=== PATIENT | male | born 1985 | race Caucasian/White ===

== ENCOUNTER 2016-10-27 10:33 | Inpatient (IN) | payer MEDICAID, OTHER ==
[~2016-10-27] VITALS: Ht 177.8 cm; Wt 96.2 kg
[~2016-10-27 10:33] MED LIST: ABIL10TA; ABIL5TAB; ALLE25CA OR; AMBI10TA; AMBI10TA OR; ATIV1TAB2; BENZ5TA PO; CELE20TA; CELE40TA; COGE1INJ PO; INVE156I IM; KLON0.5T OR; LORA2TAB; NICO21DI4 TD; RISP1TAB; RISP1TAB OR; RISP3TAB16 OR; TRIL600T OR; VIST25CA; no home medications; risperdal consta IM
[2016-10-27] MEDS ORDERED: ROPI0.5T PO (11:16)
[2016-10-27] MEDS ORDERED: ADDE5TAB5 PO (11:16)
[2016-10-27] MEDS ORDERED: ATOM60CA PO (11:16)
[2016-10-27] MEDS ORDERED: INVE1.75 IM (11:16)
[2016-10-27 12:18] LABS: MEAN CORPUSCULAR HEMOGLOBIN 30.5 pg (27.0-33.0); MEAN CORPUSCULAR HGB CONC 34.8 g/dl (32.0-36.5); MEAN CORPUSCULAR VOLUME 87.6 fl (80.0-96.0); RED CELL DISTRIBUTION WIDTH 12.5 % (11.5-14.5); WHITE BLOOD COUNT 16.6 K/mm3 (4.0-10.0)
[2016-10-27 12:59] LABS: METHADONE URINE NEGATIVE (NEGATIVE)
[2016-10-27 13:00] LABS: ALBUMIN 4.3 GM/DL (3.2-5.2); ALBUMIN/GLOBULIN RATIO 1.16 (1.00-1.93); ALKALINE PHOSPHATASE 109 U/L (45-117); ALT/SGPT 90 U/L (12-78); ANION GAP 11 MEQ/L (8-16); AST/SGOT 42 U/L (15-37); BILIRUBIN,DIRECT 0.2 MG/DL (0.0-0.2); BILIRUBIN,TOTAL 0.5 MG/DL (0.2-1.0); BLOOD UREA NITROGEN 11 MG/DL (7-18); CALCIUM LEVEL 9.2 MG/DL (8.5-10.1); CARBON DIOXIDE LEVEL 26 MEQ/L (21-32); CHLORIDE LEVEL 100 MEQ/L (98-107); CREATININE FOR GFR 0.79 MG/DL (0.70-1.30); GLOMERULAR FILTRATION RATE > 60.0 (>60); GLUCOSE, FASTING 95 MG/DL (70-105); POTASSIUM SERUM 3.8 MEQ/L (3.5-5.1); SODIUM LEVEL 137 MEQ/L (136-145)
[2016-10-27] MEDS ORDERED: MOM 30ML SUSPENSION UDC PO PRN (20:45)
[2016-10-27] MEDS ORDERED: MAALOX 30 ML SUSP *UDC PO PRN (20:45)
[2016-10-27] MEDS ORDERED: LORazepam 1 MG TAB PO PRN (20:45)
[2016-10-27] MEDS ORDERED: ACETAMINOPHEN TAB 650MG DOSE (2X325MG) PO PRN (20:45)
[2016-10-27] MEDS: DIVALPROEX 250 MG TAB PO SCH (21:00)
[2016-10-27] MEDS ORDERED: PALIPERIDONE 3 MG ER TAB (INVEGA) PO SCH (21:00)
[2016-10-27] MEDS: rOPINIRole 0.25 MG TAB(REQUIP) PO SCH (21:15)
[2016-10-28 00:57] VITALS: BP 147/94
[2016-10-28 06:42] VITALS: BP 146/93
[2016-10-28] MEDS ORDERED: STRATTERA 60 MG PO SCH (09:00)
[2016-10-28] MEDS ORDERED: ATOMOXETINE HCL 40 MG CAP (STRATTERA) PO SCH (09:00)
[2016-10-28] MEDS: DIVALPROEX 250 MG TAB PO SCH ×2 (09:54→21:06)
[2016-10-28] MEDS: NICOTINE 21MG/24HR 1 EA TRANSDERMAL TD SCH (09:54)
[2016-10-28] MEDS: ADDERALL 5 MG TAB PO SCH (09:55)
--- NOTE | 2016-10-28 15:58 | HPEPDOC ---
[facility] History & Physical History and Physical DATE OF ADMISSION: Oct 27, 2016 at 14:13 LEGAL STATUS AT ADMISSION: 9.39 CHIEF COMPLAINT: Was brought to the emergency room by his mother stated that he was not well controlled. He has a history of taking antipsychotic medication ( invega). His mother says that he hasn't been compliant with medication and apparently he has been using more Adderall than he should have. Mother complained about bizarre behavior that got progressively worse. HISTORY OF THE PRESENT ILLNESS: Patient is a 31-year-old male, who states that yesterday he was planning to go out with his roommate but that his grandfather called the police and when he heard that he had called the police he walked down the street and went to get the keys to his apartment and then walk back to where he was, and then he realized that his mother thought that he was acting oddly and she decided to bring him to the emergency room. He states he was not being aggressive or mean to anyone and wasn't trying to hurt himself. He states he was taking 40 mg of Adderall per day, 60 mg of Strattera and his mother believed that he was abusing these medications. He says that he received his invega injection 1 month ago. He says he was diagnosed with ADHD at a young age. PSYCHIATRIC REVIEW OF SYSTEMS: Affective: "I want to go home, I don't want to hurt myself or other people". Anxiety: High. Trauma: Denies. Psychosis: The patient denies delusional thoughts, auditory or visual hallucinations, thought insertion. Personally: Needs further assessment. PAST PSYCHIATRIC HISTORY: Prior Psychiatric Disorder: He has been treated with antipsychotic medication. He states that this happened because his family thought several years ago that he was odd. Has been taking medications for ADHD and was diagnosed with ADHD. Childhood. Outpatient Treatment: He receives outpatient treatment but apparently he hasn't been compliant with medication. Suicidal/Self injurious: The night previous suicide attempts. Psychotropic Medication History: Invega, Adderall and Strattera. ALLERGIES: Please see below. FAMILY PSYCHIATRIC HISTORY: According to patient no one in his family has a psychiatric problem. SOCIAL HISTORY: Early Relations/development: He says he grew up with parents and denies history of trauma or abuse. Sibling order: He is the only child. Paternal relationships: Estranged relationship with father. Lives with his mother but at times he says that he lives alone in an apartment, then he said that he shares that apartment with a roommate and finally he states again that he lives with his mother. Education: High school. Occupational: Unemployed. Legal: Denies. Martial: Is not . Economic: Receives a disability check. Supports: He says that his mother is very supportive of him. Abuse/trauma: Denies. SUBSTANCE ABUSE HISTORY: He admits to use alcohol once in a while, and he says that when he uses it is only 1 beer. PAST MEDICAL/SURGICAL HISTORY: Denies VITAL SIGNS: Stable MENTAL STATUS EXAMINATION: General appearance: Patient is a 31-year old male, who is,alert disheveled, cooperative with interview , with fair eye contact . Speech: Not circumstantial and not tangential. Thought processes: Incoherent. He is confused and he conveys different messages , for example that he lives with his mother, then he says that he lives with a friend, then he says that he lives at his apartment and then he says again that he lives with his mother. Thought content: Negative for suicidal thoughts, negative for homicidal thoughts. He seems internally preoccupied. Abstract reasoning and computation: Impaired. Description of associations: No loosening of associations. Description of abnormal or psychotic thoughts: The patient is most likely responding to internal stimuli. At times he doesn't seem to be fully aware of his surroundings and he keeps staring around. Judgment: Poor. Insight: Poor. Orientation: Oriented to place and himself but not to time or date. Recent and remote memory: Impaired. Patient has poor recollection of past events. Attention span and concentration: Poor. Fund of knowledge: Poor. Mood: "In not have been behaving a little bit odd, but I haven't been mean to anyone." Affect: Blunted. DIAGNOSES: 1. Unspecified psychotic disorder. 2. History of ADHD. ASSESSMENT: Patient has very poor judgment and insight, is confused, not fully oriented and is in need of treatment and further hospitalization. PROBLEM LIST: 1. Self-care deficit. 2. Risk for self injury. 3. Altered thoughts. 4. Altered perceptions 5. Noncompliance INITIAL TREATMENT PLAN: 1. Patient was admitted on a 2. Complete history was obtained. 3. With patients permission, family will be contacted and database will be expanded. 4. Patients medication regimen will be reviewed and changed accordingly. 5. Patient will be provided with protected environment. 6. Patient will be treated with individual, group, and milieu therapies. 7. Patient will receive supportive psych-education. 8. Discharge planning will commence immediately. 9. Outpatient follow-up treatment will be strongly recommended. 10. The initial treatment plan will focus initially on: * Depression. * Risk for suicide. * Substance abuse. ESTIMATED LENGTH OF STAY: 5-7 DAYS. TIME SPENT COUNSELING AND COORDINATING INITIAL CARE: 40 minutes. Medications Scheduled (Invega Trinza) 819 Mg/2.625 Ml Inj 819 MG IM Q3M (Reported) Amphetamine/Dextroamphetamine (Adderall 5 mg) 1 Tab Tab 20 MG PO BID (Reported ) Atomoxetine Hydrochloride (Strattera) 60 Mg Cap 60 MG PO DAILY (Reported) Ropinirole Hydrochloride (Ropinirole HCl) 0.5 Mg Tab 0.5 MG PO QHS (Reported) Allergies Coded Allergies: Antihistamines, Diphenhydramine-typ (Unverified Allergy, Unknown, 10/27/16) Trazodone (Verified Adverse Reaction, Mild, 10/11/12) MUSCLE CRAMPS,TREMORS AYLIN CHICAS MD Oct 28, 2016 15:58
[2016-10-28 18:00] VITALS: BP 138/80
[2016-10-28] MEDS: rOPINIRole 0.25 MG TAB(REQUIP) PO SCH (21:06)
[2016-10-29 06:53] VITALS: BP 149/83
[2016-10-29] MEDS: DIVALPROEX 250 MG TAB PO SCH ×2 (08:06→20:33)
[2016-10-29] MEDS: ADDERALL 5 MG TAB PO SCH (08:06)
[2016-10-29] MEDS: NICOTINE 21MG/24HR 1 EA TRANSDERMAL TD SCH (08:07)
--- NOTE | 2016-10-29 08:50 | IPNPDOC ---
[facility] Progress Note Progress Note DATE OF SERVICE: 10/29/16 HISTORY: 31 alba old male with history of psychotic disorder and ADHD, who was being treated with Adderall 40 mgs. PO QD, Strattera, 60 mgs and Invega was brought to Emergenc y room by his family because they believed he was acting bizarre and they thought he was not handling his medication properly. he has stated he had his Invega injection last month and that he was not taking any other antypsichotic, except for Adderall and Strattera. he didn't have suicidal thoughts and he didn't have homicidal thoughts. he was not aggressive, not violent to his relatives. VITAL SIGNS: See below. NEW TEST RESULTS: None. CURRENT MEDICATIONS: See below. MENTAL STATUS EXAMINATION: Patient is a 31-year old male, who is alert, cooperative with interview with fair eye contact. Speech: Is normal in tone, volume and speed. Language skills are fair. Thought processes including: Incoherent at times. Thought content: At times, he seems internally preoccupied; he doesn't have negative or persecutory delusions. Negative for suicidal ideation, negative for homicidal ideation. Abstract reasoning, and computation: Poor. Description of associations: No loosening of associations. Description of abnormal or psychotic thoughts: He denies delusional thoughts or hallucinations but he responds to internally stimuli. Judgment: Poor. Insight: Poor. Orientation: Oriented to place and person but not to time or date.. Recent and remote memory: Poor. Attention span and concentration: Poor. Language: Poverty of language. Fund of knowledge: Fair. Mood: " I slept weell, I feel fine". Affect: Constricted. DIAGNOSES: 1. Unspecified psychotic disorder. 2. ADHD by history. 3. Non compliance. ASSESSMENT:He needs to be stabilized on his antipsychotic medications and we need more information from his family, about his medications and his baseline. MANAGEMENT PLAN: Speak to his family and gather information about his medication history. If it has been more than one month since he had Invega injection, we should be able to give him another injection. TIME SPENT: 15 minutes. Vital Signs Vital Signs Date Time Temp Pulse Resp B/P Pulse Ox O2 Delivery O2 Flow Rate FiO2 10/29/16 06:53 96.3 80 18 149/83 10/27/16 10:48 97 Room Air Current Medications Current Medications Acetaminophen (Tylenol Tab) 650 mg Q6HP PRN PO HEADACHE or DISCOMFORT; Start at 20:45; Stop 11/26/16 at 20:44 Al Hydrox/Mg Hydrox/Simethicone (Mylanta) 30 ml Q4HP PRN PO HEARTBURN/ INDIGESTION; Start 10/27/16 at 20:45; Stop 11/26/16 at 20:44 Amphetamine/ Dextroamphetamine (Adderall) 10 mg QAM PO Last administered on 08:06; Start 10/28/16 at 09:00; Stop 11/04/16 at 08:59 Aripiprazole (AbiLIFY) 2.5 mg QHS PO Last administered on 10/28/16 21:06; Start 10/27/16 at 21:00; Stop 11/26/16 at 20:59 Atomoxetine HCl (Strattera (Atomoxetine)) 60 mg QAM PO ; Start 10/28/16 at 09:00 ; Stop 10/28/16 at 09:00; Status DC Divalproex Sodium (Depakote) 250 mg BID PO Last administered on 10/29/16 08:06 ; Start 10/27/16 at 21:00; Stop 11/26/16 at 20:59 Home Med (Med Rec Complete!) ASDIRECTED XX ; Start 10/27/16 at 12:00; Stop at 12:00; Status DC Lorazepam (Ativan) 1 mg Q8HP PRN PO ANXIETY/AGITATION; Start 10/27/16 at 20:45 ; Stop 11/03/16 at 20:44 Magnesium Hydroxide (Milk Of Magnesia) 30 ml DAILYPRN PRN PO CONSTIPATION; Start 10/27/16 at 20:45; Stop 11/26/16 at 20:44 Miscellaneous (Unresolved Patient Own Med Order) SEE LABEL COMMENTS UNRESOLVED XX ; Start 10/27/16 at 00:01; Stop 11/26/16 at 00:00 Nicotine (Nicoderm Cq 21mg) 1 patch DAILY TD Last administered on 10/29/16 08: 07; Start 10/28/16 at 09:00; Stop 11/27/16 at 08:59 Paliperidone (Invega) 2.5 mg QHS PO ; Start 10/27/16 at 21:00; Stop 10/27/16 at 21:00; Status DC Patient Own Medication (Patient'S Own Med) STRATTERA 60 MG PO DAILY DAILY PO ; Start 10/28/16 at 09:00; Stop 11/27/16 at 08:59; Status Future Hold Ropinirole HCl (Requip) 0.5 mg QHS PO Last administered on 10/28/16t 21:06; Start 10/27/16 at 21:00; Stop 11/26/16 at 20:59 Allergies Coded Allergies: Antihistamines, Diphenhydramine-typ (Unverified Allergy, Unknown, 10/27/16) Trazodone (Verified Adverse Reaction, Mild, 10/11/12) MUSCLE CRAMPS,TREMORS AYLIN CHICAS MD Oct 29, 2016 08:49
[2016-10-29 18:00] VITALS: BP 140/90
[2016-10-29] MEDS: rOPINIRole 0.25 MG TAB(REQUIP) PO SCH (20:33)
--- NOTE | 2016-10-29 21:51 | HPE ---
DATE OF ADMISSION: 10/27/2016 Please refer to the psychiatric history and evaluation for further details on this admission. This examination and history is intended for medical issues which may need treatment, followup, or consult on this 31-year-old male. ALLERGIES: ANTIHISTAMINES, TRAZODONE causes leg twitching. PAST MEDICAL HISTORY: 1. Obstructive sleep apnea. He does not wear a continuous positive airway pressure (CPAP) mask. 2. Depression. 3. Obsessive compulsive disorder. 4. Schizoaffective disorder. SOCIAL HISTORY: He is single. He lives alone in [place]. He says he has been locked out of his apartment, locked himself out for the last 3 days. He is unemployed. He smokes 1-2 packs of cigarettes per day. He drinks 5-6 beers a day. Recreational drug use: Denies any. LABORATORY STUDIES: WBC 16.6, hemoglobin 14.4, hematocrit 41.5, platelets 258, electrolytes were normal, BUN was 16, creatinine was 0.79, AST was 42, ALT was 90. HOME MEDICATIONS: - Adderall 20 mg by mouth twice a day - Requip 0.5 mg by mouth nightly - Strattera 60 mg by mouth daily He states he has not had his medications for 4 days as they were locked in his cupboard in his apartment. - Invega 819 mg intramuscular (IM) every 3 months PAST SURGICAL HISTORY: Negative. FAMILY HISTORY: Noncontributory. REVIEW OF SYSTEMS: His only complaint was of bilateral slight foot and inner ankle swelling. He stated he noticed it about a week to two weeks after getting his Invega shot. He says the swelling has gradually improved. Otherwise, he had no complaints. Review of systems was unremarkable. OBJECTIVE: 31-year-old cooperative male, in no acute distress. Height 70 inches, weight 92.5 kg, body mass index (BMI) 29.3. Blood pressure 178/80, pulse 90, respirations 16, temperature 97.8. Patient is alert and oriented times three. Pupils equal and reactive to light. Extraocular movements are intact. Cornea and sclerae clear. Conjunctivae is normal. No facial asymmetry. Pharynx, tongue, gums pink and moist. Tongue is midline. NECK: Supple without lymphadenopathy. No thyromegaly. No goiter. Carotids are 2+ without bruit. CHEST: Clear to auscultation without wheeze or retraction. HEART: Regular. ABDOMEN: Benign. Bowel sounds positive. GENITOURINARY/RECTAL: Not done. EXTREMITIES: Show equal strength. Full range of motion. No cyanosis, clubbing, or edema. Peripheral pulses equal and palpable bilaterally. Slight swelling in the instep of both feet, no redness or drainage. Skin is warm and dry. IMPRESSION/PLAN: 1. Psychiatric plan per psychiatry. 2. Elevated liver enzymes. We will repeat liver profile in the morning. Probably secondary to alcohol intake. 3. Leukocytosis. Repeat complete blood count (CBC) in the morning. 4. Very slight swelling in the instep and just below the ankle bone on both feet. Monitor for improvement. The patient is instructed to keep his feet up. The swelling is very minimal.
[2016-10-30 06:26] VITALS: BP 141/92
[2016-10-30] MEDS: DIVALPROEX 250 MG TAB PO SCH ×2 (08:42→20:37)
[2016-10-30] MEDS: ADDERALL 5 MG TAB PO SCH (08:42)
[2016-10-30] MEDS: NICOTINE 21MG/24HR 1 EA TRANSDERMAL TD SCH (08:42)
[2016-10-30 09:25] LABS: BASO # 0.1 K/mm3 (0.0-0.2); BASO % 0.7 % (0.0-1.0); EOS # 0.4 K/mm3 (0.0-0.50); EOS % 3.8 % (0.0-3.0); LARGE UNSTAINED CELL # 0.2 K/mm3 (0.0-0.4); LYMPH # 2.5 K/mm3 (1.5-4.5); LYMPH % 21.2 % (24.0-44.0); MEAN CORPUSCULAR HEMOGLOBIN 31.2 pg (27.0-33.0); MEAN CORPUSCULAR HGB CONC 34.8 g/dl (32.0-36.5); MEAN CORPUSCULAR VOLUME 89.8 fl (80.0-96.0); MONO # 0.7 K/mm3 (0.0-0.8); MONO % 5.6 % (0.0-5.0); NEUTROPHILS # 7.7 K/mm3 (1.8-7.7); NEUTROPHILS % 66.7 % (36.0-66.0); PLATELET COUNT, AUTOMATED 282 k/mm3 (150-450); RED CELL DISTRIBUTION WIDTH 12.1 % (11.5-14.5); WHITE BLOOD COUNT 11.6 K/mm3 (4.0-10.0)
[2016-10-30 09:46] LABS: ALBUMIN 3.5 GM/DL (3.2-5.2); ALBUMIN/GLOBULIN RATIO 1.06 (1.00-1.93); ALKALINE PHOSPHATASE 96 U/L (45-117); ALT/SGPT 85 U/L (12-78); ANION GAP 8 MEQ/L (8-16); AST/SGOT 34 U/L (15-37); BILIRUBIN,TOTAL 0.3 MG/DL (0.2-1.0); BLOOD UREA NITROGEN 9 MG/DL (7-18); CALCIUM LEVEL 8.5 MG/DL (8.5-10.1); CARBON DIOXIDE LEVEL 28 MEQ/L (21-32); CHLORIDE LEVEL 104 MEQ/L (98-107); CREATININE FOR GFR 0.76 MG/DL (0.70-1.30); GLOMERULAR FILTRATION RATE > 60.0 (>60); GLUCOSE, FASTING 172 MG/DL (70-105); POTASSIUM SERUM 4.1 MEQ/L (3.5-5.1); SODIUM LEVEL 140 MEQ/L (136-145); TOTAL PROTEIN 6.8 GM/DL (6.4-8.2)
--- NOTE | 2016-10-30 17:43 | IPNPDOC ---
[facility] Progress Note Progress Note DATE OF SERVICE: 10/30/16 HISTORY: Patient is a 31-year-old male with a history of multiple previous admissions, has a history of being diagnosed with schizophrenia, schizoaffective disorder, psychotic disorder, among others, and ADHD who was being treated by the [facility] with Adderall 20 mg po BID, Strattera, 60 mg and Invega trinsa, states had last injection approximately one month ago. Patient informs filing writer he has "no idea" why he is in the hospital and states he feels he does not need to be here, indicates "people steal from me, wake me up, arrests me, I can't be blamed for my grandfather not liking my dancing." Patient notes he feels his grandfather overreacted when he was making noises trying to wake up a friend whom he had over at his grandfather's house. Patient states he feels he should be discharged today so that he can return home to his own apartment, however, per EMR he has provided inconsistent information on housing. Patient denies suicidal and homicidal ideation, denies symptoms of anxiety or depression, denies audiovisual hallucinations, and self-injurious behavior. Patient states current medication regimen is effective and denies medication side effects. Patient states he was diagnosed with ADHD as a child, denies challenges with concentration and focus, noting that he is prescribed Adderall due to "my energy level is too low and it helps give me energy." Patient indicates he is eating and sleeping well. Of note: Per EMR, patient's mother suspected that patient may be misusing Strattera and Adderall. Patient has been informed that Adderall taper is being recommended, verbalizes acceptance and agreement. Also, per ER report, patient' s mother indicated that patient began acting bizarre and exhibiting signs of psychosis after being recently restarted on Adderall. I-Stop review completed. VITAL SIGNS: See below. MEDICAL HISTORY: Obstructive sleep apnea, does not wear a continuous positive airway pressure (CPAP) mask. Patient denies history of seizure or head injury NEW TEST RESULTS: Labs on admission indicated elevated sugar, ALT, Neut %, [place] %, and Eos %, lowLymph % UDS positive for amphetamine EKG pending CURRENT MEDICATIONS: See below. MENTAL STATUS EXAMINATION: Patient is a 31-year old male, who is alert, cooperative with interview with fair eye contact, appears disheveled, dressed in hospital clothing, ambulates with steady gait, appears younger than stated age Speech: Is normal in tone, slightly loud volume and speed, coherent. Language skills are fair. Thought processes including: Generally logical Thought content: At times, he seems internally preoccupied; he doesn't have negative or persecutory delusions. Negative for suicidal ideation, negative for homicidal ideation. Abstract reasoning, and computation: Poor. Description of associations: No loosening of associations. Description of abnormal or psychotic thoughts: He denies delusional thoughts or hallucinations but he appears to be responding to internal stimuli. Judgment: Poor. Insight: Poor. Orientation: Oriented to place and person but not to time or date. Recent and remote memory: Poor. Attention span and concentration: Poor. Language: Poverty of language. Fund of knowledge: Fair. Mood: " I feel fine and I think I should be discharged." Affect: Blunted DIAGNOSES: Unspecified psychotic disorder, polysubstance use disorder, ADHD by history, rule out substance-induced mood disorder, rule out schizophrenia, rule out schizoaffective disorder ASSESSMENT: Patient appears to be slowly adjusting to unit, has been attending some groups, and is increasingly visible. Patient denies suicidal and homicidal ideation and is able to verbalize how to access supportive services on the unit if needed. Patient indicates Abilify is effective, feels Depakote is helping and denies medication side effects, is in agreement with Adderall taper and Strattera was discontinued by weekend psychiatrist. Patient states he has been taking the Invega trinza injection, notes had last injection approximately one month ago. Will monitor patient's response to medications and we'll monitor for medication side effects, will also evaluate patient's safety, resolution of suicidal ideation, and discharge readiness. Patient states when prepared he plans to discharge back to his own apartment, is aware that health and wellness coordinator is attempting to verify patient's housing and treatment and medication history. MANAGEMENT PLAN: Continue Depakote 250 mg po BID, Abilify 2.5 mg q hs. Continue Adderall taper 10 mg po q am with plan to discontinue medicare coordinator attempting to access treatment records to verify when last invega trinza injection was given and effective, will repeat if and when appropriate Maintain safety precautions Patient to attend groups and participate in unit programming to develop coping strategies Engage patient in discharge planning process and arrange meeting with support system to ensure safe discharge planning when appropriate Patient to follow up with PCM upon discharge TIME SPENT: 35 minutes. Vital Signs Vital Signs Date Time Temp Pulse Resp B/P Pulse Ox O2 Delivery O2 Flow Rate FiO2 10/30/16 06:26 99.3 75 18 141/92 Room Air 10/27/16 10:48 97 Laboratory Data 24H Labs Laboratory Tests 2 10/30/16 08:53: Blood Urea Nitrogen 9, Creatinine 0.76, Sodium Level 140, Potassium Level 4.1, Chloride Level 104, Carbon Dioxide Level 28, Calcium Level 8.5, Aspartate Amino Transf (AST/SGOT) 34, Alanine Aminotransferase (ALT/SGPT) 85H, Alkaline Phosphatase 96, Total Bilirubin 0.3, Total Protein 6.8, Albumin 3.5, Albumin/ Globulin Ratio 1.06, Anion Gap 8, White Blood Count 11.6H, Red Blood Count 4.79 , Hemoglobin 14.9, Hematocrit 43.0, Mean Corpuscular Volume 89.8, Mean Corpuscular Hemoglobin 31.2, Mean Corpuscular Hemoglobin Concent 34.8, Red Cell Distribution Width 12.1, Platelet Count 282, Neutrophils (%) (Auto) 66.7H, Lymphocytes (%) (Auto) 21.2L, Monocytes (%) (Auto) 5.6H, Eosinophils (%) (Auto) 3.8H, Basophils (%) (Auto) 0.7, Neutrophils # (Auto) 7.7, Lymphocytes # (Auto) 2.5, Monocytes # (Auto) 0.7, Eosinophils # (Auto) 0.4, Basophils # (Auto) 0.1, Glomerular Filtration Rate > 60.0, Large Unclassified Cells # 0.2, Large Unclassified Cells % 2.0 CBC/BMP Laboratory Tests 10/30/16 08:53 Calcium Level 8.5, Aspartate Amino Transf (AST/SGOT) 34, Alanine Aminotransferase (ALT/SGPT) 85 H, Alkaline Phosphatase 96, Total Bilirubin 0.3, Total Protein 6.8, Albumin 3.5, Red Blood Count 4.79, Mean Corpuscular Volume 89.8, Mean Corpuscular Hemoglobin 31.2, Mean Corpuscular Hemoglobin Concent 34.8 , Red Cell Distribution Width 12.1, Neutrophils (%) (Auto) 66.7 H, Lymphocytes ( %) (Auto) 21.2 L, Monocytes (%) (Auto) 5.6 H, Eosinophils (%) (Auto) 3.8 H, Basophils (%) (Auto) 0.7, Neutrophils # (Auto) 7.7, Lymphocytes # (Auto) 2.5, Monocytes # (Auto) 0.7, Eosinophils # (Auto) 0.4, Basophils # (Auto) 0.1 Current Medications Current Medications Acetaminophen (Tylenol Tab) 650 mg Q6HP PRN PO HEADACHE or DISCOMFORT; Start at 20:45; Stop 11/26/16 at 20:44 Al Hydrox/Mg Hydrox/Simethicone (Mylanta) 30 ml Q4HP PRN PO HEARTBURN/ INDIGESTION; Start 10/27/16 at 20:45; Stop 11/26/16 at 20:44 Amphetamine/ Dextroamphetamine (Adderall) 10 mg QAM PO Last administered on 08:42; Start 10/28/16 at 09:00; Stop 11/04/16 at 08:59 Aripiprazole (AbiLIFY) 2.5 mg QHS PO Last administered on 10/29/16 20:32; Start 10/27/16 at 21:00; Stop 11/26/16 at 20:59 Atomoxetine HCl (Strattera (Atomoxetine)) 60 mg QAM PO ; Start 10/28/16 at 09:00 ; Stop 10/28/16 at 09:00; Status DC Divalproex Sodium (Depakote) 250 mg BID PO Last administered on 10/30/16 08:42 ; Start 10/27/16 at 21:00; Stop 11/26/16 at 20:59 Home Med (Med Rec Complete!) ASDIRECTED XX ; Start 10/27/16 at 12:00; Stop at 12:00; Status DC Lorazepam (Ativan) 1 mg Q8HP PRN PO ANXIETY/AGITATION; Start 10/27/16 at 20:45 ; Stop 11/03/16 at 20:44 Magnesium Hydroxide (Milk Of Magnesia) 30 ml DAILYPRN PRN PO CONSTIPATION; Start 10/27/16 at 20:45; Stop 11/26/16 at 20:44 Miscellaneous (Unresolved Patient Own Med Order) SEE LABEL COMMENTS UNRESOLVED XX ; Start 10/27/16 at 00:01; Stop 11/26/16 at 00:00 Nicotine (Nicoderm Cq 21mg) 1 patch DAILY TD Last administered on 10/30/16 08: 42; Start 10/28/16 at 09:00; Stop 11/27/16 at 08:59 Paliperidone (Invega) 2.5 mg QHS PO ; Start 10/27/16 at 21:00; Stop 10/27/16 at 21:00; Status DC Patient Own Medication (Patient'S Own Med) STRATTERA 60 MG PO DAILY DAILY PO ; Start 10/28/16 at 09:00; Stop 11/27/16 at 08:59; Status Future Hold Ropinirole HCl (Requip) 0.5 mg QHS PO Last administered on 10/29/16 20:33; Start 10/27/16 at 21:00; Stop 11/26/16 at 20:59 Allergies Coded Allergies: Antihistamines, Diphenhydramine-typ (Unverified Allergy, Unknown, 10/27/16) Trazodone (Verified Adverse Reaction, Mild, 10/11/12) MUSCLE CRAMPS,TREMORS Annie Quevedo Oct 30, 2016 17:43
[2016-10-30 18:00] VITALS: BP 144/95
[2016-10-30] MEDS: rOPINIRole 0.25 MG TAB(REQUIP) PO SCH (20:37)
--- NOTE | 2016-10-30 21:29 | ECGEPIP ---
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
[2016-10-31 06:27] VITALS: BP 126/80
[2016-10-31 08:02] LABS: ALBUMIN 3.6 GM/DL (3.2-5.2); ALBUMIN/GLOBULIN RATIO 1.09 (1.00-1.93); ALKALINE PHOSPHATASE 93 U/L (45-117); ALT/SGPT 96 U/L (12-78); ANION GAP 7 MEQ/L (8-16); AST/SGOT 33 U/L (15-37); BILIRUBIN,TOTAL 0.3 MG/DL (0.2-1.0); BLOOD UREA NITROGEN 9 MG/DL (7-18); CALCIUM LEVEL 8.5 MG/DL (8.5-10.1); CARBON DIOXIDE LEVEL 29 MEQ/L (21-32); CHLORIDE LEVEL 106 MEQ/L (98-107); CREATININE FOR GFR 0.79 MG/DL (0.70-1.30); GLOMERULAR FILTRATION RATE > 60.0 (>60); GLUCOSE, FASTING 89 MG/DL (70-105); POTASSIUM SERUM 4.4 MEQ/L (3.5-5.1); SODIUM LEVEL 142 MEQ/L (136-145); TOTAL PROTEIN 6.9 GM/DL (6.4-8.2)
[2016-10-31 08:04] LABS: MEAN CORPUSCULAR HEMOGLOBIN 31.4 pg (27.0-33.0); MEAN CORPUSCULAR HGB CONC 34.7 g/dl (32.0-36.5); MEAN CORPUSCULAR VOLUME 90.6 fl (80.0-96.0); RED CELL DISTRIBUTION WIDTH 12.3 % (11.5-14.5)
[2016-10-31] MEDS: ADDERALL 5 MG TAB PO SCH (09:23)
[2016-10-31] MEDS: DIVALPROEX 250 MG TAB PO SCH ×2 (09:23→20:46)
[2016-10-31] MEDS: NICOTINE 21MG/24HR 1 EA TRANSDERMAL TD SCH (09:23)
--- NOTE | 2016-10-31 17:30 | IPNPDOC ---
[facility] Progress Note Progress Note DATE OF SERVICE: 10/31/16 HISTORY: Patient is a 31-year-old male with a history of multiple previous admissions, has a history of being diagnosed with schizophrenia, schizoaffective disorder, psychotic disorder, among other diagnoses, and ADHD who was being treated by the CC with Adderall 20 mg po BID, Strattera, 60 mg and Invega trinza, has indicated he had last injection approximately one month ago. Patient is observed resting in bed, sits up to engage with web content writer. Patient reports improvement in symptoms of anxiety and depression, denies audiovisual hallucinations, denies suicidal homicidal ideation, denies urge to engage in self-injurious behavior. Patient indicates mood appears more level on Depakote and, though patient denies symptoms psychosis, feels Abilify is effective in improving mood and treating psychosis. Patient indicates he feels prepared for discharge, reiterates today he has "no idea" why he is in the hospital, adds he does not need to be here. Patient notes he has things he feels he needs to get done and therefore should be discharged noting, "it's a struggle for me to be in the hospital and I have a homeless friend and it's a struggle for him, it's a struggle for us and I need to get out here so I can picker/puller some cigs." Patient reiterates today that he has his own apartment to which he can return at discharge. clinical rehabilitation coordinator is attempting to gather background information on patient to verify medication history and housing situation. Patient states he is sleeping well, denies challenges with appetite, indicates concentration, focus and energy are better on the higher dose of Adderall but are currently "okay," denies physical pain. Patient presents with no signs of acute distress at time of interaction. Of note: Per EMR, patient's mother suspected that patient may be misusing Strattera and Adderall. Patient has been informed that Adderall taper is being recommended, verbalizes acceptance and agreement. Also, per ER report, patient' s mother indicated that patient began acting bizarre and exhibiting signs of psychosis after being recently restarted on Adderall. I-Stop review completed. VITAL SIGNS: See below. MEDICAL HISTORY: Obstructive sleep apnea, does not wear a continuous positive airway pressure (CPAP) mask. Patient denies history of seizure or head injury NEW TEST RESULTS: WBCs repeated within normal limits, low anion gap, elevated ALT. PA is aware and monitoring. Labs on admission indicated elevated sugar, ALT , Neut %, [place] %, and Eos %, lowLymph %. UDS positive for amphetamine 10/30/16 EKG Normal sinus rhythm with sinus arrhythmia. Normal EKG No significant change when compared to prior tracing of 08/26/2013 CURRENT MEDICATIONS: See below. MENTAL STATUS EXAMINATION: Patient is a 31-year old male, who is alert, cooperative with interview with fair eye contact, appears disheveled, dressed in hospital clothing, ambulates with steady gait, appears younger than stated age Speech: Is normal in tone, slightly loud volume and speed, coherent. Language skills are fair. Thought processes including: Generally logical Thought content: At times, he seems internally preoccupied; he doesn't have negative or persecutory delusions. Negative for suicidal ideation, negative for homicidal ideation. Abstract reasoning, and computation: Poor. Description of associations: No loosening of associations. Description of abnormal or psychotic thoughts: He denies delusional thoughts or hallucinations but he appears to be responding to internal stimuli. Judgment: Poor. Insight: Poor. Orientation: Oriented to place and person but not to time or date. Recent and remote memory: Poor. Attention span and concentration: Poor. Language: Poverty of language. Fund of knowledge: Fair. Mood: " I feel fine, no problem." Patient appears less anxious today, appears depressed, no mood lability noted Affect: Blunted DIAGNOSES: Unspecified psychotic disorder, polysubstance use disorder, ADHD by history, rule out substance-induced mood disorder, rule out schizophrenia, rule out schizoaffective disorder ASSESSMENT: Patient appears to be slowly adjusting to unit, has been attending some groups, and is increasingly visible. Patient denies suicidal and homicidal ideation and is able to verbalize how to access supportive services on the unit if needed. Patient indicates Abilify is effective, feels Depakote is helping and denies medication side effects, remains in agreement with Adderall taper. Patient reiterates today he has been taking the Invega trinza injection, notes had last injection approximately one month ago. Will monitor patient's response to medications and will monitor for medication side effects, will also evaluate patient's safety, resolution of suicidal ideation, and discharge readiness. Patient states when prepared he plans to discharge back to his own apartment, indicates he is willing to participate in outpatient psychotherapy and medication management, recommendation made for substance abuse treatment as well , patient denies need at this time. clinical rehabilitation coordinator will continue to verify patient's housing, treatment and medication history. MANAGEMENT PLAN: Continue Depakote 250 mg po BID, Abilify 2.5 mg q hs. Continue Adderall taper 10 mg po q am with plan to discontinue clinical rehabilitation coordinator attempting to access treatment records to verify when last invega trinza injection was given and effective, will repeat if and when appropriate Maintain safety precautions Patient to attend groups and participate in unit programming to develop coping strategies Engage patient in discharge planning process and arrange meeting with support system to ensure safe discharge planning when appropriate Patient to follow up with PCM upon discharge TIME SPENT: 35 minutes. Vital Signs Vital Signs Date Time Temp Pulse Resp B/P Pulse Ox O2 Delivery O2 Flow Rate FiO2 10/31/16 06:27 99.0 71 16 126/80 10/30/16 06:26 Room Air 10/27/16 10:48 97 Laboratory Data 24H Labs Laboratory Tests 2 10/31/16 07:16: Blood Urea Nitrogen 9, Creatinine 0.79, Sodium Level 142, Potassium Level 4.4, Chloride Level 106, Carbon Dioxide Level 29, Calcium Level 8.5, Aspartate Amino Transf (AST/SGOT) 33, Alanine Aminotransferase (ALT/SGPT) 96H, Alkaline Phosphatase 93, Total Bilirubin 0.3, Total Protein 6.9, Albumin 3.6, Albumin/ Globulin Ratio 1.09, Anion Gap 7L, Glomerular Filtration Rate > 60.0 CBC/BMP Laboratory Tests 10/31/16 07:16 Calcium Level 8.5, Aspartate Amino Transf (AST/SGOT) 33, Alanine Aminotransferase (ALT/SGPT) 96 H, Alkaline Phosphatase 93, Total Bilirubin 0.3, Total Protein 6.9, Albumin 3.6, Red Blood Count 4.88, Mean Corpuscular Volume 90.6, Mean Corpuscular Hemoglobin 31.4, Mean Corpuscular Hemoglobin Concent 34.7 , Red Cell Distribution Width 12.3 Current Medications Current Medications Acetaminophen (Tylenol Tab) 650 mg Q6HP PRN PO HEADACHE or DISCOMFORT; Start at 20:45; Stop 11/26/16 at 20:44 Al Hydrox/Mg Hydrox/Simethicone (Mylanta) 30 ml Q4HP PRN PO HEARTBURN/ INDIGESTION; Start 10/27/16 at 20:45; Stop 11/26/16 at 20:44 Amphetamine/ Dextroamphetamine (Adderall) 10 mg QAM PO Last administered on 09:23; Start 10/28/16 at 09:00; Stop 11/04/16 at 08:59 Aripiprazole (AbiLIFY) 2.5 mg QHS PO Last administered on 10/30/16 20:38; Start 10/27/16 at 21:00; Stop 11/26/16 at 20:59 Atomoxetine HCl (Strattera (Atomoxetine)) 60 mg QAM PO ; Start 10/28/16 at 09:00 ; Stop 10/28/16 at 09:00; Status DC Divalproex Sodium (Depakote) 250 mg BID PO Last administered on 10/31/16 09:23 ; Start 10/27/16 at 21:00; Stop 11/26/16 at 20:59 Home Med (Med Rec Complete!) ASDIRECTED XX ; Start 10/27/16 at 12:00; Stop at 12:00; Status DC Lorazepam (Ativan) 1 mg Q8HP PRN PO ANXIETY/AGITATION; Start 10/27/16 at 20:45 ; Stop 11/03/16 at 20:44 Magnesium Hydroxide (Milk Of Magnesia) 30 ml DAILYPRN PRN PO CONSTIPATION; Start 10/27/16 at 20:45; Stop 11/26/16 at 20:44 Miscellaneous (Unresolved Patient Own Med Order) SEE LABEL COMMENTS UNRESOLVED XX ; Start 10/27/16 at 00:01; Stop 10/31/16 at 09:47; Status DC Nicotine (Nicoderm Cq 21mg) 1 patch DAILY TD Last administered on 10/31/16 09: 23; Start 10/28/16 at 09:00; Stop 11/27/16 at 08:59 Paliperidone (Invega) 2.5 mg QHS PO ; Start 10/27/16 at 21:00; Stop 10/27/16 at 21:00; Status DC Patient Own Medication (Patient'S Own Med) STRATTERA 60 MG PO DAILY DAILY PO ; Start 10/28/16 at 09:00; Stop 10/31/16 at 09:47; Status DC Ropinirole HCl (Requip) 0.5 mg QHS PO Last administered on 10/30/16t 20:37; Start 10/27/16 at 21:00; Stop 11/26/16 at 20:59 Allergies Coded Allergies: Antihistamines, Diphenhydramine-typ (Unverified Allergy, Unknown, 10/27/16) Trazodone (Verified Adverse Reaction, Mild, 10/11/12) MUSCLE CRAMPS,TREMORS Annie Quevedo Oct 31, 2016 17:30
[2016-10-31 18:00] VITALS: BP 150/88
[2016-10-31] MEDS: rOPINIRole 0.25 MG TAB(REQUIP) PO SCH (20:47)
[2016-11-01 06:36] VITALS: BP 148/72
[2016-11-01] MEDS: NICOTINE 21MG/24HR 1 EA TRANSDERMAL TD SCH (09:00)
[2016-11-01] MEDS: ADDERALL 5 MG TAB PO SCH (09:00)
[2016-11-01] MEDS: DIVALPROEX 250 MG TAB PO SCH (09:01)
--- NOTE | 2016-11-01 10:50 | IPNPDOC ---
Subjective Date Seen The patient was seen on 11/01/16. Subjective Chief Complaint/HPI The patient is a 31-year-old male admitted with a reason for visit of Unspecified Psychosis. Events since last encounter Patient with no complaints. States he is tired. Pulmonary: Denies: Dyspnea, Cough Cardiovascular: Denies: Chest Pain, Palpitations, Orthopnea, Paroxysmal Noc. Dyspnea, Lt Headedness Gastrointestinal: Denies: Nausea, Vomiting, Abdominal Pain, Diarrhea, Constipation Genitourinary: Denies: Dysuria, Frequency, Incontinence, Retention Objective Physical Examination General Exam: Positive: Alert Eye Exam: Positive: PERRLA ENT Exam: Positive: Atraumatic Chest Exam: Positive: Clear to auscultation, Normal air movement Heart Exam: Positive: Rate Normal, Regular Rhythm, Normal S1, Normal S2, Negative: Murmurs, Rubs Skin Exam: Positive: Nl turgor and temperature Assessment /Plan Problems (1) Elevated LFTs Problem Text: * [place] possibly secondary to alcohol intake on admission. * Hepatitis profile unremarkable. * Right upper quadrant ultrasound requested. Patient is declining at this time and states he does not wish to have any further testing completed. * Arrange follow up with PCP at discharge for continued outpatient follow-up. * Depakote may contribute to elevated LFTs. * Continue to monitor CMP Plan/VTE VTE Prophylaxis Ordered?: No (ambulatory) VS, I&O, 24H, Fishbone Vital Signs/I&O Vital Signs Date Time Temp Pulse Resp B/P (MAP) Pulse Ox O2 Delivery O2 Flow Rate FiO2 11/01/16 06:36 99.6 73 73 148/72 (97) 14 Room Air Anat Bond Nov 01, 2016 10:50
[2016-11-01] MEDS: SODIUM CHLORIDE NASAL 0.65% SPRAY BTL (OCEAN) PRN ×2 (13:35→20:23)
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
[2016-11-01 18:00] VITALS: BP 130/85
[2016-11-01] MEDS: rOPINIRole 0.25 MG TAB(REQUIP) PO SCH (20:23)
[2016-11-02 06:21] VITALS: BP 146/84
[2016-11-02] MEDS: ADDERALL 5 MG TAB PO SCH (09:31)
[2016-11-02] MEDS: NICOTINE 21MG/24HR 1 EA TRANSDERMAL TD SCH (09:32)
[2016-11-02] MEDS: SODIUM CHLORIDE NASAL 0.65% SPRAY BTL (OCEAN) PRN ×2 (11:44→16:20)
[2016-11-02 18:00] VITALS: BP 152/96
--- NOTE | 2016-11-02 18:02 | IPNPDOC ---
[facility] Progress Note Progress Note DATE OF SERVICE: 11/02/16 HISTORY: Patient is a 31-year-old male with a history of multiple previous admissions, has a history of being diagnosed with schizophrenia, schizoaffective disorder, psychotic disorder, among other diagnoses, and ADHD who was being treated by the [facility] with Adderall 20 mg po BID, Strattera, 60 mg and Invega trinza, has indicated he had last injection approximately one month ago. Patient is observed resting in bed, sits up to engage with commercial underwriter. Patient reports improvement in symptoms of anxiety and depression, denies audiovisual hallucinations, denies suicidal homicidal ideation, denies urge to engage in self-injurious behavior. Patient indicates Abilify is helpful in helping patient feel calm, notices "no difference" since discontinuation of Depakote. Receiver spoke with patient regarding discontinuation of ropinirole, patient indicates he does not want medication discontinued, reports history of " restless legs," notes symptoms preexisted psychotropic medication trial, adds symptoms had drastic impact on his ability to sleep. Patient denies medication side effects and feels he derives important benefit from medication. Patient denies medication side effects. Receiver spoke at length today with patient regarding his history of alcohol consumption, patient reiterates he has no intentions of discontinuing alcohol consumption on daily basis, denies having substance abuse problem, vehemently refuses to participate in inpatient or outpatient substance abuse treatment. Patient reiterates today he has been drinking approximately 4 beers per day for the past 10 years, verbalizes awareness that he should not be consuming alcohol while taking psychotropic medications, indicates he is aware of the risks of combining alcohol with psychotropic medications. Patient appears clearer today, does not appear disorganized, circumstantial or tangential, denies symptoms of agitation, irritability, impulsivity, or labile mood. Patient reiterates he has his own apartment in [employer] housing to which he plans to return at discharge. coordinator skill training program continues to attempt to access background information from family and to verify medication history and housing situation. Patient states he is sleeping well, denies challenges with appetite, indicates concentration, focus and energy are adequate, and denies physical pain. Patient presents with no signs of acute distress at time of interaction. Of note: Voiced no message left for patient's mother to verify housing situation in preparation for discharge early next week, voicemail message left requesting return call to either commercial underwriter or payroll and benefits coordinator. Of note: Receiver spoke with patient's outpatient provider, Tam Parsons, at [facility] to inform that patient is being tapered off of stimulant medication, Abilify has been added and patient reports positive response. Issa verified that patient was placed on ropinirole due to long history of restless leg type symptoms, and the patient remains on ropinirole which may be tapered in the outpatient environment if deemed appropriate by outpatient provider. Issa indicated that patient receives trinza 819 mg IM on 10/16/16, due again on or about 01/15/17. Issa verified that on same date Strattera was discontinued and patient was placed on Adderall 20 mg po BID. Receiver informed [place] of patient's alcohol use and that patient has stated he does not intend to cease alcohol consumption, and suspected abuse of Adderall. Of note: Per EMR, patient's mother suspected that patient may be misusing Strattera and Adderall. Patient has been informed that Adderall taper is being recommended, verbalizes acceptance and agreement. Also, per ER report, patient' s mother indicated that patient began acting bizarre and exhibiting signs of psychosis after being recently restarted on Adderall. I-Stop review completed. VITAL SIGNS: See below. MEDICAL HISTORY: Obstructive sleep apnea, does not wear a continuous positive airway pressure (CPAP) mask. Patient denies history of seizure or head injury NEW TEST RESULTS: ALT remains elevated, see EMR for details, PA is aware and monitoring. Labs on admission indicated elevated sugar, ALT, Neut %, [place] %, and Eos %, lowLymph %. UDS positive for amphetamine 10/30/16 EKG Normal sinus rhythm with sinus arrhythmia. Normal EKG No significant change when compared to prior tracing of 08/26/2013 CURRENT MEDICATIONS: See below. MENTAL STATUS EXAMINATION: Patient is a 31-year old male, who is alert, cooperative with interview with improved eye contact, appears disheveled, dressed in hospital clothing, ambulates with steady gait, appears younger than stated age Speech: Is normal in tone, rhythm, volume, coherent. Language skills are fair. Thought processes including: Logical, rational, goal-directed Thought content: Logical, rational, does not appear to be internally preoccupied , negative for suicidal ideation, negative for homicidal ideation, continues to feel he is the victim of the world and of his background. Abstract reasoning, and computation: Limited but improving. Description of associations: No loosening of associations. Description of abnormal or psychotic thoughts: He denies delusional thoughts or hallucinations, does not appear to be responding to internal stimuli today Judgment: Poor. Insight: Poor. Orientation: Oriented to place and person but not to time or date. Recent and remote memory: Fair, improving Attention span and concentration: Fair, improving Language: Within normal limits Fund of knowledge: Fair. Mood: "I'm fine, I don't need to be here." Patient appears less anxious today, less depressed, no mood lability noted Affect: Constricted DIAGNOSES: Unspecified psychotic disorder, polysubstance use disorder, ADHD by history, rule out substance-induced mood disorder, rule out schizophrenia, rule out schizoaffective disorder ASSESSMENT: Patient continues to adjust to unit, has been attending some groups , is increasingly visible. Patient denies suicidal and homicidal ideation and is able to verbalize how to access supportive services on the unit if needed. Patient continues to minimize events which led to current hospitalization and also minimizes substance abuse which includes alcohol and possibly prescription amphetamine, blames current situation on his parents and his grandparents. Patient indicates Abilify is effective and states he wants to continue medication. Receiver also discussed discontinuation of ropinirole which patient indicates he does not want discontinued due to history of restless leg type symptoms, adds symptoms preexisted psychotropic medication trial and notably impacted the quality of his sleep. Patient denies medication side effects. Patient remains in agreement with Adderall taper, is aware he of when he will be due for follow-up trinza injection at [facility]. Patient denies symptoms of mood lability, irritability, agitation, denies suicidal and homicidal ideation and verbalizes awareness of how to access supportive services on the unit if needed. Will continue to monitor patient's response to medications and will monitor for medication side effects, will also evaluate patient's safety, resolution of suicidal ideation, and discharge readiness. Patient states when prepared he plans to discharge back to his own apartment, indicates he is willing to participate in outpatient psychotherapy and medication management, recommendation again made for substance abuse treatment which patient continues to decline. MANAGEMENT PLAN: Continue Adderall 5 mg po q am X 2 days then discontinue. Continue Abilify 2.5 mg q hs and evaluate need to transition to po Invega. coordinator skill training program attempting to access treatment records to verify when last invega trinza injection was given and effective, will repeat if and when appropriate Maintain safety precautions Patient to attend groups and participate in unit programming to develop coping strategies Engage patient in discharge planning process and arrange meeting with support system to ensure safe discharge planning when appropriate Patient to follow up with PCM upon discharge TIME SPENT: 35 minutes. Vital Signs Vital Signs Date Time Temp Pulse Resp B/P (MAP) Pulse Ox O2 Delivery O2 Flow Rate FiO2 11/02/16 06:21 99.3 73 16 146/84 (104) Room Air 11/01/16 06:36 14 Current Medications Current Medications Acetaminophen (Tylenol Tab) 650 mg Q6HP PRN PO HEADACHE or DISCOMFORT; Start at 20:45; Stop 11/26/16 at 20:44 Al Hydrox/Mg Hydrox/Simethicone (Mylanta) 30 ml Q4HP PRN PO HEARTBURN/ INDIGESTION; Start 10/27/16 at 20:45; Stop 11/26/16 at 20:44 Amphetamine/ Dextroamphetamine (Adderall) 5 mg QAM PO Last administered on 11/02 09:31; Start 11/02/16 at 09:00; Stop 11/04/16 at 09:00 Amphetamine/ Dextroamphetamine (Adderall) 10 mg QAM PO Last administered on 09:00; Start 10/28/16 at 09:00; Stop 11/01/16 at 17:40; Status DC Aripiprazole (AbiLIFY) 2.5 mg QHS PO Last administered on 11/01/16 20:23; Start 10/27/16 at 21:00; Stop 11/26/16 at 20:59 Atomoxetine HCl (Strattera (Atomoxetine)) 60 mg QAM PO ; Start 10/28/16 at 09:00 ; Stop 10/28/16 at 09:00; Status DC Divalproex Sodium (Depakote) 250 mg BID PO Last administered on 11/01/16 09:01 ; Start 10/27/16 at 21:00; Stop 11/01/16 at 17:15; Status DC Home Med (Med Rec Complete!) ASDIRECTED XX ; Start 10/27/16 at 12:00; Stop at 12:00; Status DC Lorazepam (Ativan) 1 mg Q8HP PRN PO ANXIETY/AGITATION; Start 10/27/16 at 20:45 ; Stop 11/01/16 at 17:53; Status DC Magnesium Hydroxide (Milk Of Magnesia) 30 ml DAILYPRN PRN PO CONSTIPATION; Start 10/27/16 at 20:45; Stop 11/26/16 at 20:44 Miscellaneous (Unresolved Patient Own Med Order) SEE LABEL COMMENTS UNRESOLVED XX ; Start 10/27/16 at 00:01; Stop 10/31/16 at 09:47; Status DC Nicotine (Nicoderm Cq 21mg) 1 patch DAILY TD Last administered on 11/02/16 09: 32; Start 10/28/16 at 09:00; Stop 11/27/16 at 08:59 Paliperidone (Invega) 2.5 mg QHS PO ; Start 10/27/16 at 21:00; Stop 10/27/16 at 21:00; Status DC Patient Own Medication (Patient'S Own Med) STRATTERA 60 MG PO DAILY DAILY PO ; Start 10/28/16 at 09:00; Stop 10/31/16 at 09:47; Status DC Ropinirole HCl (Requip) 0.5 mg QHS PO Last administered on 11/01/16 20:23; Start 10/27/16 at 21:00; Stop 11/26/16 at 20:59 Sodium Chloride ([place] Nas[place]) 2 spray Q2HP PRN NA NASAL DRYNESS Last administered on 11/02/16 16:20; Start 11/01/16 at 12:30; Stop 12/01/16 at 12:29 Allergies Coded Allergies: Antihistamines, Diphenhydramine-typ (Unverified Allergy, Unknown, 10/27/16) Trazodone (Verified Adverse Reaction, Mild, 10/11/12) MUSCLE CRAMPS,TREMORS Annie Quevedo Nov 02, 2016 18:02
[2016-11-02] MEDS: rOPINIRole 0.25 MG TAB(REQUIP) PO SCH (21:08)
[2016-11-03 07:06] VITALS: BP 142/92
[2016-11-03] MEDS: ADDERALL 5 MG TAB PO SCH (09:12)
[2016-11-03] MEDS: NICOTINE 21MG/24HR 1 EA TRANSDERMAL TD SCH (09:12)
[2016-11-03] MEDS: SODIUM CHLORIDE NASAL 0.65% SPRAY BTL (OCEAN) PRN (13:34)
[2016-11-03 18:00] VITALS: BP 156/82
[2016-11-03] MEDS: rOPINIRole 0.25 MG TAB(REQUIP) PO SCH (20:10)
--- NOTE | 2016-11-03 20:53 | IPNPDOC ---
[facility] Progress Note Progress Note DATE OF SERVICE: 11/03/16 HISTORY: Patient is a 31-year-old male with a history of multiple previous admissions, has a history of being diagnosed with schizophrenia, schizoaffective disorder, psychotic disorder, among other diagnoses, and ADHD who was being treated by the [facility] with Adderall 20 mg po BID, Strattera, 60 mg and Invega trinza, has indicated he had last injection approximately one month ago. Patient is observed being up and out of bed today, visible in lounge, engaging selectively with peers, walking the hallways. Patient today denies anxiety and depression, denies audiovisual hallucinations, denies suicidal homicidal ideation, denies urge to engage in self-injurious behavior, states he feels Abilify remains helpful in helping him feel "calm, in control," and denies medication side effects. Patient has declined discontinuation of ropinirole due to history of "restless legs," notes symptoms preexisted psychotropic medication trial, reiterates symptoms had notable impact on his ability to sleep. Wheel Molder and patient spoke at length again today regarding patient's history of daily alcohol consumption, patient continues to indicate he has no intentions of discontinuing consumption on daily basis, denies having substance abuse problem, minimizes use, and continues to decline to participate in outpatient substance abuse treatment. Patient reiterates today he has been drinking approximately 4 beers per day for the past 10 years, verbalizes awareness that he should not be consuming alcohol while taking psychotropic medications, indicates he is aware of the risks of combining alcohol with psychotropic medications. Patient appears clearer today, does not appear disorganized, circumstantial or tangential, denies symptoms of agitation, irritability, impulsivity, or labile mood. Patient reiterates he has his own apartment in [facility] housing to which he plans to return at discharge. Attempts at been made to contact patient's mother to verify treatment and medication history , and housing situation. Patient states he is sleeping well, denies challenges with appetite, indicates concentration, focus and energy are adequate, and denies physical pain. Patient presents with no signs of acute distress at time of interaction. Patient is aware he has meeting scheduled with outpatient pillowcase cutter for Sunday to discuss discharge readiness and plan. Of note: Another voice mail message left requesting return call for patient's mother to verify housing situation and treatment history/compliance in preparation for discharge early next week. Of note: Wheel Molder spoke with patient's outpatient provider, Tam Parsons, at [facility] to inform that patient is being tapered off of stimulant medication, Abilify has been added and patient reports positive response. Issa verified that patient was placed on ropinirole due to long history of restless leg type symptoms, and the patient remains on ropinirole which may be tapered in the outpatient environment if deemed appropriate by outpatient provider. Issa indicated that patient receives trinza 819 mg IM on 10/16/16, due again on or about 01/15/17. Issa verified that on same date Strattera was discontinued and patient was placed on Adderall 20 mg po BID. Wheel Molder informed [place] of patient's alcohol use and that patient has stated he does not intend to cease alcohol consumption, and suspected abuse of Adderall. Of note: Per EMR, patient's mother suspected that patient may be misusing Strattera and Adderall. Patient has been informed that Adderall taper is being recommended, verbalizes acceptance and agreement. Also, per ER report, patient' s mother indicated that patient began acting bizarre and exhibiting signs of psychosis after being recently restarted on Adderall. I-Stop review completed. VITAL SIGNS: See below. BP elevated, patient denies symptoms of headache, dizziness, palpitations, chest pain, and shortness of breath. PA has been asked to evaluate and nursing has been instructed to monitor. Patient has been placed on vitals QID. MEDICAL HISTORY: Obstructive sleep apnea, does not wear a continuous positive airway pressure (CPAP) mask. Patient denies history of seizure or head injury NEW TEST RESULTS: ALT remains elevated, see EMR for details, PA is aware and monitoring. Labs on admission indicated elevated sugar, ALT, Neut %, [place] %, and Eos %, lowLymph %. UDS positive for amphetamine 10/30/16 EKG Normal sinus rhythm with sinus arrhythmia. Normal EKG No significant change when compared to prior tracing of 08/26/2013 CURRENT MEDICATIONS: See below. MENTAL STATUS EXAMINATION: Patient is a 31-year old male, who is alert, cooperative with interview with improved eye contact, appears less disheveled, dressed in hospital clothing, ambulates with steady gait, appears younger than stated age Speech: Is normal in tone, rhythm, volume, coherent. Language skills are fair. Thought processes including: Logical, rational, goal-directed Thought content: Logical, rational, does not appear to be internally preoccupied , denies suicidal and homicidal ideation, continues to feel he is a victim of world/background but does not appear paranoid. Abstract reasoning, and computation: Limited but improving. Description of associations: No loosening of associations. Description of abnormal or psychotic thoughts: He denies delusional thoughts or hallucinations, does not appear to be responding to internal stimuli today Judgment: Limited, some improvement noted Insight: Limited, some improvement noted Orientation: Oriented to place and person but not to time or date. Recent and remote memory: Adequate Attention span and concentration: Adequate Language: Within normal limits Fund of knowledge: Adequate Mood: "I'm fine, I feel good." Patient appears less anxious today, less depressed, no mood lability noted Affect: Constricted DIAGNOSES: Unspecified psychotic disorder, polysubstance use disorder, ADHD by history, rule out substance-induced mood disorder, rule out schizophrenia, rule out schizoaffective disorder ASSESSMENT: Patient continues to adjust to unit, has been attending some groups , is increasingly visible. Patient denies suicidal and homicidal ideation and is able to verbalize how to access supportive services on the unit if needed. Patient continues to minimize events which led to current hospitalization and also minimizes substance abuse which includes alcohol and possibly prescription amphetamine, blames current situation on his parents and his grandparents. Patient indicates Abilify is effective and states he wants to continue medication. Wheel Molder also discussed discontinuation of ropinirole which patient indicates he does not want discontinued due to history of restless leg type symptoms, adds symptoms preexisted psychotropic medication trial and notably impacted the quality of his sleep. Patient denies medication side effects. Patient remains in agreement with Adderall taper, is aware he of when he will be due for follow-up trinza injection at [facility]. Patient denies symptoms of mood lability, irritability, agitation, denies suicidal and homicidal ideation and verbalizes awareness of how to access supportive services on the unit if needed. Will continue to monitor patient's response to medications and will monitor for medication side effects, will also evaluate patient's safety, resolution of suicidal ideation, and discharge readiness. Patient states when prepared he plans to discharge back to his own apartment, indicates he is willing to participate in outpatient psychotherapy and medication management, recommendation again made for substance abuse treatment which patient continues to decline. MANAGEMENT PLAN: Continue Adderall 5 mg po q am X 1 days then discontinue. Continue Abilify 2.5 mg q hs and continue to evaluate need to transition to po Invega. Vitals QID Maintain safety precautions Patient to attend groups and participate in unit programming to develop coping strategies Engage patient in discharge planning process and arrange meeting with support system to ensure safe discharge planning when appropriate Patient to follow up with PCM upon discharge TIME SPENT: 35 minutes. Vital Signs Vital Signs Date Time Temp Pulse Resp B/P (MAP) Pulse Ox O2 Delivery O2 Flow Rate FiO2 11/03/16 18:00 99.6 84 16 156/82 (106) 11/02/16 18:00 Room Air 11/01/16 06:36 14 Current Medications Current Medications Acetaminophen (Tylenol Tab) 650 mg Q6HP PRN PO HEADACHE or DISCOMFORT; Start at 20:45; Stop 11/26/16 at 20:44 Al Hydrox/Mg Hydrox/Simethicone (Mylanta) 30 ml Q4HP PRN PO HEARTBURN/ INDIGESTION; Start 10/27/16 at 20:45; Stop 11/26/16 at 20:44 Amphetamine/ Dextroamphetamine (Adderall) 5 mg QAM PO Last administered on 11/03 09:12; Start 11/02/16 at 09:00; Stop 11/04/16 at 09:00 Amphetamine/ Dextroamphetamine (Adderall) 10 mg QAM PO Last administered on 09:00; Start 10/28/16 at 09:00; Stop 11/01/16 at 17:40; Status DC Aripiprazole (AbiLIFY) 2.5 mg QHS PO Last administered on 11/03/16 20:10; Start 10/27/16 at 21:00; Stop 11/26/16 at 20:59 Atomoxetine HCl (Strattera (Atomoxetine)) 60 mg QAM PO ; Start 10/28/16 at 09:00 ; Stop 10/28/16 at 09:00; Status DC Divalproex Sodium (Depakote) 250 mg BID PO Last administered on 11/01/16 09:01 ; Start 10/27/16 at 21:00; Stop 11/01/16 at 17:15; Status DC Home Med (Med Rec Complete!) ASDIRECTED XX ; Start 10/27/16 at 12:00; Stop at 12:00; Status DC Lorazepam (Ativan) 1 mg Q8HP PRN PO ANXIETY/AGITATION; Start 10/27/16 at 20:45 ; Stop 11/01/16 at 17:53; Status DC Magnesium Hydroxide (Milk Of Magnesia) 30 ml DAILYPRN PRN PO CONSTIPATION; Start 10/27/16 at 20:45; Stop 11/26/16 at 20:44 Miscellaneous (Unresolved Patient Own Med Order) SEE LABEL COMMENTS UNRESOLVED XX ; Start 10/27/16 at 00:01; Stop 10/31/16 at 09:47; Status DC Nicotine (Nicoderm Cq 21mg) 1 patch DAILY TD Last administered on 11/03/16 09: 12; Start 10/28/16 at 09:00; Stop 11/27/16 at 08:59 Paliperidone (Invega) 2.5 mg QHS PO ; Start 10/27/16 at 21:00; Stop 10/27/16 at 21:00; Status DC Patient Own Medication (Patient'S Own Med) STRATTERA 60 MG PO DAILY DAILY PO ; Start 10/28/16 at 09:00; Stop 10/31/16 at 09:47; Status DC Ropinirole HCl (Requip) 0.5 mg QHS PO Last administered on 11/03/16 20:10; Start 10/27/16 at 21:00; Stop 11/26/16 at 20:59 Sodium Chloride ([place] Nasal [place]) 2 spray Q2HP PRN NA NASAL DRYNESS Last administered on 11/03/16 13:34; Start 11/01/16 at 12:30; Stop 12/01/16 at 12:29 Allergies Coded Allergies: Antihistamines, Diphenhydramine-typ (Unverified Allergy, Unknown, 10/27/16) Trazodone (Verified Adverse Reaction, Mild, 10/11/12) MUSCLE CRAMPS,TREMORS Annie Quevedo Nov 03, 2016 20:53
[2016-11-04 06:22] VITALS: BP 141/86
[2016-11-04 07:40] LABS: ALKALINE PHOSPHATASE 99 U/L (45-117); ALT/SGPT 160 U/L (12-78); ANION GAP 6 MEQ/L (8-16); AST/SGOT 57 U/L (15-37); BILIRUBIN,TOTAL 0.2 MG/DL (0.2-1.0); BLOOD UREA NITROGEN 9 MG/DL (7-18); CALCIUM LEVEL 8.6 MG/DL (8.5-10.1); CARBON DIOXIDE LEVEL 30 MEQ/L (21-32); CHLORIDE LEVEL 105 MEQ/L (98-107); CREATININE FOR GFR 0.76 MG/DL (0.70-1.30); GLOMERULAR FILTRATION RATE > 60.0 (>60); GLUCOSE, FASTING 102 MG/DL (70-105); POTASSIUM SERUM 4.8 MEQ/L (3.5-5.1); SODIUM LEVEL 141 MEQ/L (136-145); TOTAL PROTEIN 6.9 GM/DL (6.4-8.2)
[2016-11-04 07:41] LABS: ALBUMIN 3.7 GM/DL (3.2-5.2); ALBUMIN/GLOBULIN RATIO 1.16 (1.00-1.93)
[2016-11-04] MEDS: ADDERALL 5 MG TAB PO SCH (08:00)
[2016-11-04] MEDS: NICOTINE 21MG/24HR 1 EA TRANSDERMAL TD SCH (08:00)
[2016-11-04] MEDS: SODIUM CHLORIDE NASAL 0.65% SPRAY BTL (OCEAN) PRN ×2 (10:59→20:23)
[2016-11-04 12:00] VITALS: BP 158/80
[2016-11-04 18:00] VITALS: BP 144/67
[2016-11-04] MEDS: rOPINIRole 0.25 MG TAB(REQUIP) PO SCH (20:23)
[2016-11-04 22:00] VITALS: BP 142/76
[2016-11-05 06:52] VITALS: BP 135/84
[2016-11-05] MEDS: SODIUM CHLORIDE NASAL 0.65% SPRAY BTL (OCEAN) PRN ×3 (07:59→20:36)
[2016-11-05] MEDS: NICOTINE 21MG/24HR 1 EA TRANSDERMAL TD SCH (08:01)
[2016-11-05 18:00] VITALS: BP 146/84
[2016-11-05] MEDS: rOPINIRole 0.25 MG TAB(REQUIP) PO SCH (20:38)
[2016-11-06 06:13] VITALS: BP 124/88
[2016-11-06] MEDS: NICOTINE 21MG/24HR 1 EA TRANSDERMAL TD SCH (08:02)
[2016-11-06] MEDS ORDERED: ABIL5TAB5 PO (13:34)
--- NOTE | 2016-11-06 13:37 | DS.PDOC ---
[facility] Discharge Summary Discharge Summary DATE OF ADMISSION: Oct 27, 2016 at 14:13 DATE OF DISCHARGE: November 06, 2016 HISTORY: Patient is a 31-year-old male who was brought to the emergency room by his mother who stated that patient was not well controlled on his medications, indicated patient has a history of taking antipsychotic medication (invega). Patient's mother indicated to ER personnel that patient has not been compliant with medication and apparently he has been using more Adderall than he should have and patient also has a notable history of medication noncompliance. Mother complained about bizarre behavior that got progressively worse. Patient states that day prior to admission he was planning to go out with his roommate but that his grandfather called the police and when patient heard his grandfather had called the police patient walked down the street and went to get the keys to his apartment, relies stay locked himself out, return to grandfather's home and proceeded to "dance and joke around" with a friend, patient's grandfather and mother apparently thought patient was acting oddly and she decided to bring him to the emergency room. He states he was not being aggressive or mean to anyone and wasn't trying to hurt himself. He states he was taking 40 mg of Adderall per day, 60 mg of Strattera and his mother believed that he was abusing these medications. He says that he received his invega injection 1 month ago. He says he was diagnosed with ADHD at a young age. PSYCHIATRIC REVIEW OF SYSTEMS AT TIME OF ADMISSION: Affective: "I want to go home, I don't want to hurt myself or other people". Anxiety: High. Trauma: Denies. Psychosis: The patient denies delusional thoughts, auditory or visual hallucinations, thought insertion. Personally: Needs further assessment. PAST PSYCHIATRIC HISTORY: Prior Psychiatric Disorder: He has been treated with antipsychotic medication. He states that this happened because his family thought several years ago that he was odd. Has been taking medications for ADHD and was diagnosed with ADHD. Childhood. Outpatient Treatment: He receives outpatient treatment but apparently he hasn't been compliant with medication. Suicidal/Self injurious: The night previous suicide attempts. Psychotropic Medication History: Invega, Adderall and Strattera. MEDICAL HISTORY: Obstructive sleep apnea, does not wear a continuous positive airway pressure (CPAP) mask. Patient denies history of seizure or head injury TEST RESULTS: Refer to patient's most recent lab results for details, PA has been monitoring. Patient has declined lab work to evaluate elevated ALT and AST , has also declined ultrasound 2 during his stay; indicates he is asymptomatic and denies necessity for testing. Patient's capacity to make decision was confirmed by attending, Dr. Alvarez. UDS positive for amphetamine at time of admission 10/30/16 EKG Normal sinus rhythm with sinus arrhythmia. Normal EKG No significant change when compared to prior tracing of 08/26/2013 FAMILY PSYCHIATRIC HISTORY: According to patient no one in his family has a psychiatric problem. SOCIAL HISTORY: Early Relations/development: He says he grew up with parents and denies history of trauma or abuse. Sibling order: He is the only child. Paternal relationships: Estranged relationship with father. Lives with his mother but at times he says that he lives alone in an apartment, then he said that he shares that apartment with a roommate and finally he states again that he lives with his mother. Education: High school. Occupational: Unemployed. Legal: Denies. Martial: Is not . Economic: Receives a disability check. Supports: He says that his mother is very supportive of him. Abuse/trauma: Denies. SUBSTANCE ABUSE HISTORY: At time of admission patient indicated he drank one beer occasionally, however, it became known during his admission that he drinks approximately 4 drinks per day, his indicated he has no intentions of seeking his alcohol consumption and consumes alcohol on a regular basis. TREATMENT PROGRESS ON UNIT: Patient is a 31-year-old male with a history of multiple previous admissions, has history of being diagnosed with schizophrenia , schizoaffective disorder, psychotic disorder, and ADHD, among other diagnoses. Patient was initially isolative and withdrawn, became progressively more visible on unit and has been participating in unit activities. Prior to admission, patient had been receiving outpatient medication management through [facility] and, per med reconciliation, was being prescribed Requip, Adderall, and trinza injection, indicated he had last injection October 16, 2016. It appears patient may have also been taking Strattera 60 mg in addition to aforementioned prescribed medications. Per ER documentation, at time of admission, patients mother expressed concerns that patient was misusing Adderall and possibly Strattera; patient was not prescribed Strattera in the inpatient environment and was tapered off Adderall during his stay without incident. At time of admission patient was briefly prescribed Depakote in effort to stabilize mood which was also discontinued without incident. Also at time of admission patient was placed on low dose of Abilify in effort to address symptoms of psychosis and mood, patient has declined discontinuation of Abilify noting he feels medication helps him feel more calm. Patient has declined to have Requip discontinued due to report of notable history of restless leg type symptoms which have apparently impacted his ability to sleep. Patient reports improvement in mood, denies symptoms of anxiety and depression, denies suicidal and homicidal ideation, denies auditory and visual hallucinations, and denies urge to engage in self-injurious behavior. Patient describes mood as stable, denies irritability, agitation, and impulsivity. Patient indicates current medication regimen is working good, denies medication side effects and states he feels ready for discharge to home. Patient has indicated he has no intentions of ceasing consumption of alcohol, denies having substance abuse problem, minimizes extent of substance abuse, and has repeatedly declined to participate in outpatient substance abuse treatment. Patient states he is sleeping well, denies challenges with appetite, indicates concentration, focus and energy are adequate, and denies physical pain. Patients lab results were fully reviewed with him and he was educated on potential risks and side effects of medications, potential implications of recent lab results indicating elevated liver enzymes, and risks associated with patients refusal to undergo further testing, workup, and ultrasound; patient stated he is asymptomatic and verbalized understanding of risks. In addition, patient received coaching on diet, was advised not to consume alcohol, and was instructed to go to the nearest hospital/ER if he begins to experience symptoms ; patient verbalized understanding. Update provided to [facility] provider regarding patients recent lab results, concerns that patient may be experiencing side effects related to trinza injection and/or other medications, Adderall use/abuse , alcohol abuse, etc., and patients refusal to undergo ultrasound or additional lab work, and intermittently elevated blood pressure, and patients disinterest in discontinuation of Abilify prior to discharge. Numerous attempts made to reach patients mother with voicemail messages left and no return calls received. Family meeting was completed with patients caser shoe parts in attendance who indicated she feels comfortable with patient being discharged and denied having concerns about his readiness to return home. Patient was made aware that he will require ongoing monitoring and lab work, and that ultrasound is being strongly recommended, was also strongly advised not to consume alcohol while taking psychotropic medications; patient verbalized understanding of the risks and recommendations. Capacity to refuse labs, ultrasound, further evaluation, was established by unit attending MD, Dr. Alvarez, who evaluated patient prior to discharge. As previously stated, attempts were made to reach patients mother in order to discuss discharge and request that patient be assisted with the removal of medication that should be left over per I-Stop review which was completed on 10/30/16. Patients caser shoe parts was also made aware of possibility of leftover medication at patients apartment and patient was encouraged to appropriately discard medication. economic development coordinator has made arrangements for patient to meet with outpatient psychotherapist on 11/08/16 and will have follow-up appointment with outpatient prescriber on 11/10/16. Patient is requesting discharge today with plan to return to apartment in [facility] housing, is aware he will be following up with [employer] and [facility] for outpatient psychotherapy and medication management services. Substance abuse treatment has also been strongly recommended patient who has declined. Patient verbalizes understanding of and agreement with discharge plan. MENTAL STATUS EXAMINATION ON DISCHARGE: Patient is a 31-year old male, who is alert, cooperative with interview with improved eye contact, and exhibits adequate personal hygiene, is dressed in own T-shirt with hospital scrubs, ambulates with steady gait, appears younger than stated age Speech: Is normal in tone, rhythm, volume, coherent. Language skills are adequate Thought processes including: Logical, rational, goal-directed Thought content: Logical, rational, no paranoia noted, no tangentiality, or circumstantiality Abstract reasoning, and computation: Adequate Description of associations: Intact Description of abnormal or psychotic thoughts: Patient denies suicidal or homicidal ideation, denies auditory or visual hallucinations, does not appear to be responding to internal stimuli, does not endorse any bizarre or paranoid ideation, denies preoccupation with violence and/or obsessions. Judgment: Fair, has improved during treatment Insight: Limited, has improved during treatment Orientation: A and O 3 Recent and remote memory: Adequate Attention span and concentration: Adequate Language: Within normal limits Fund of knowledge: Adequate Mood: "I feel good, I have no symptoms and I'm ready to go home." Patient denies anxiety and depression, no mood lability noted Affect: Constricted but brightens appropriately, expresses humor, congruent with mood CONDITION ON DISCHARGE: Stable, no suicidal or homicidal ideation DIAGNOSES ON DISCHARGE: Unspecified psychotic disorder, polysubstance use disorder, ADHD by history, rule out substance-induced mood disorder, rule out schizophrenia, rule out schizoaffective disorder MEDICATIONS ON DISCHARGE: See below FOLLOW UP PLAN: Continue trinza 819 mg IM q 3 months (next due 01/15/17 per [facility] report, or as determined appropriate by outpatient provider), Abilify 2.5 mg q hs until follow-up with outpatient provider to evaluate readiness for discontinuation and/or need for transition to po Invega. Patient to continue Requip until needs with outpatient provider to evaluate need for continuation/ discontinuation. Patient to follow-up with outpatient provider to undergo lab work and ultrasound which she declined to have done in the inpatient treatment environment Patient to discharge to home today and to follow up with [facility] for medication management and psychotherapy, and case management services through [facility] Patient to follow up with [facility] within 5-7 days of discharge TIME SPENT COORDINATING CARE: 45 minutes Vital Signs/I&Os Vital Signs Date Time Temp Pulse Resp B/P (MAP) Pulse Ox O2 Delivery O2 Flow Rate FiO2 11/06/16 06:13 99.1 66 16 124/88 (100) Room Air 11/01/16 06:36 14 Medications Scheduled (Invega Trinza) 819 Mg/2.625 Ml Inj, 819 MG IM Q3M for ., (Reported) Aripiprazole (Abilify) 5 Mg Tab, 5 MG PO QHS for mood/psychosis, #3 take 1/2 tab by mouth at bedtime Ropinirole Hydrochloride (Ropinirole HCl) 0.5 Mg Tab, 0.5 MG PO QHS, (Reported) Allergies Coded Allergies: Antihistamines, Diphenhydramine-typ (Unverified Allergy, Unknown, 10/27/16) Trazodone (Verified Adverse Reaction, Mild, 10/11/12) MUSCLE CRAMPS,TREMORS Annie Quevedo November 06, 2016 13:37
== END 2016-11-06 16:00 | disposition home or self-care (01) | DRG 885 ==
LOC: M ED 12:22 → M ED INP 14:13 → M PSY 20:10
PROVIDERS: ADMIT Psychiatry & Neurology Psychiatry; ATTEND Psychiatry & Neurology Psychiatry
DX: F29 Unspecified psychosis not due to a substance or known physiological condition (principal); F90.9 Attention-deficit hyperactivity disorder, unspecified type; G47.33 Obstructive sleep apnea (adult) (pediatric); F20.9 Schizophrenia, unspecified; F17.210 Nicotine dependence, cigarettes, uncomplicated; F19.19 Other psychoactive substance abuse with unspecified psychoactive substance-induced disorder; Z79.899 Other long term (current) drug therapy; Z91.14 Patient's other noncompliance with medication regimen

== ENCOUNTER → 2024-09-10 | Outpatient (REF) | payer OTHER ==
[~2024-09-10] MED LIST changes: +ABIL1TAB11 PO; +ADDE1TAB14 PO; +ATOM60CA PO; +INVE1.75 IM; +INVE234I IM; +INVE3TAB2 PO; +MIRT-89 PO; +NORV5TAB PO; +ROPI0.5T33 PO
[2024-09-10 14:04] LABS: THYROID STIMULATING HORMONE 0.352 uIU/ML (0.55-4.78)
[2024-09-10 14:05] LABS: TOTAL 25(OH) VITAMIN D 15.3 NG/ML (20.0-100.0)
[2024-09-10 14:07] LABS: ALBUMIN 4.1 G/DL (3.2-5.2); ALKALINE PHOSPHATASE 125 U/L (40-129); ALT/SGPT 86 U/L (7.0-40); AST/SGOT 31 U/L (<34); BILIRUBIN,TOTAL 0.4 MG/DL (0.3-1.2); BLOOD UREA NITROGEN 10 MG/DL (9-23); CALCIUM LEVEL 9.6 MG/DL (8.5-10.1); CARBON DIOXIDE LEVEL 30 MMOL/L (20-31); CHLORIDE LEVEL 100 MMOL/L (98-107); CHOLESTEROL LEVEL 159 MG/DL (<200); CHOLESTEROL RISK RATIO 4.71 (<5); CREATININE FOR GFR 0.58 MG/DL (0.70-1.30); GLOMERULAR FILTRATION RATE > 60.0 (>60); GLUCOSE, FASTING 208 MG/DL (60-100); HDL CHOLESTEROL 33.7 MG/DL (>40); NON-HDL-C 125.3 MG/DL; POTASSIUM SERUM 4.1 MMOL/L (3.5-5.1); SODIUM LEVEL 138 MMOL/L (136-145); TOTAL PROTEIN 7.4 G/DL (5.7-8.2); TRIGLYCERIDES LEVEL 421 MG/DL (<150)
[2024-09-10 14:18] LABS: HEMOGLOBIN A1c 7.9 % (4.0-6.0)
[2024-09-10 14:30] LABS: HIV 1&2 SCREEN NEGATIVE (NEGATIVE)
[2024-09-10 18:18] LABS: HEPATITIS C VIRUS ABY INDEX 0.04 INDEX (<0.8)
== END ==
LOC: M LAB REF 13:06
PROVIDERS: ATTEND Physician Assistant
DX: Z11.9 Encounter for screening for infectious and parasitic diseases, unspecified (principal); E55.9 Vitamin D deficiency, unspecified; I10 Essential (primary) hypertension; E66.9 Obesity, unspecified